=== PATIENT | female | born 1940 | race Caucasian/White ===

== ENCOUNTER → 2017-08-11 | Outpatient (CLI) | payer MEDICARE, OTHER ==
[~2017-08-11] MED LIST: CYAN50008 PO; DONE10TA37 PO; FOLATAB PO; LEVO75TA50 PO; LITH300T5 PO; MEMA10TA PO
== END | disposition home or self-care (01) ==
LOC: Rad HDHVI 11:54
PROVIDERS: ATTEND Internal Medicine Cardiovascular Disease
DX: I70.0 Atherosclerosis of aorta (principal); R91.8 Other nonspecific abnormal finding of lung field; J93.83 Other pneumothorax; Z95.810 Presence of automatic (implantable) cardiac defibrillator
CPT/HCPCS: 71020

== ENCOUNTER → 2017-08-18 | Outpatient (CLI) | payer MEDICARE, OTHER | END | disposition home or self-care (01) | LOC: Rad HDHVI 08:53 | PROVIDERS: ATTEND Internal Medicine Cardiovascular Disease | DX: I06.1 Rheumatic aortic insufficiency (principal); R06.02 Shortness of breath | CPT/HCPCS: 93306 ==